=== PATIENT | female | born 1980 | race Caucasian/White ===

== ENCOUNTER 2018-10-06 08:57 | Emergency (ER) | payer OTHER ==
[~2018-10-06] VITALS: Ht 172.7 cm; Wt 95.5 kg
[~2018-10-06 08:57] MED LIST: NORG1TAB41 PO
[2018-10-06 11:31] VITALS: BP 154/69
== END 2018-10-06 11:33 | disposition home or self-care (01) ==
LOC: ER 08:58
DX: R53.1 Weakness (principal); R25.1 Tremor, unspecified; R47.89 Other speech disturbances; F41.9 Anxiety disorder, unspecified; Z98.890 Other specified postprocedural states
CPT/HCPCS: 70450; 99284